=== PATIENT | female | born 2000 | race Caucasian/White ===

== ENCOUNTER 2020-10-21 13:01 | Outpatient (CLI) | payer OTHER, MEDICAID, SELFPAY | END 2020-10-21 13:02 | disposition home or self-care (01) | LOC: ANHCOVIDVC 13:01 | DX: Z23 Encounter for immunization (principal) | CPT/HCPCS: 0001A; 91300 ==

== ENCOUNTER 2020-11-11 13:01 | Outpatient (CLI) | payer OTHER, MEDICAID, SELFPAY | END 2020-11-11 13:02 | disposition home or self-care (01) | LOC: ANHCOVIDVC 13:01 | DX: Z23 Encounter for immunization (principal) | CPT/HCPCS: 0002A; 91300 ==

== ENCOUNTER 2022-02-11 14:47 | Emergency (ER) | payer BC, SELFPAY ==
[2022-02-11 15:03] VITALS: BP 116/67; PULSE 89; RESP 16; TEMP 36.9; O2SAT 99
--- NOTE | 2022-02-11 15:18 | ED.EAR ---
HPI - Ear Problem General Chief complaint: Ear Stated complaint: sore throat Time Seen by Provider: 02/11/22 15:18 Source: patient, RN notes reviewed and old records reviewed Mode of arrival: ambulatory Limitations: no limitations History of Present Illness HPI Narrative: 21-year-old accompanied by grandmother presents to [facility] care with complaints of right ear discomfort with muffled hearing since Wednesday. Patient does state that she did go swimming on Wednesday. Patient has noted bilateral cerumen impactions of ears. Patient denies any dizziness or ringing in her ear or any feelings of vertigo or nausea. Patient is legally blind. MD Complaint: ear pain Location: right ear Duration: intermittent Treatment prior to arrival: none Related Data Home Medications Medication Instructions Recorded Confirmed No Home Medications 02/11/22 02/11/22 Allergies Allergy/AdvReac Type Severity Reaction Status Date / Time No Known Allergies Allergy Verified 02/11/22 15:47 Review of Systems Review of Systems: CONSTITUTIONAL: Denies fever, chills, or sweats. EYES: Denies visual changes, redness, or discharge.Patient is legally blind ENT: Denies rhinorrhea, congestion, sore throat, right ear otalgia. CARDIOVASCULAR: Denies chest pain, palpitations, or edema. RESPIRATORY: Denies cough or dyspnea. GASTROINTESTINAL: Denies abdominal pain, nausea, vomiting, or diarrhea. GENITOURINARY: Denies dysuria or hematuria. SKIN: Denies rash or itching. MUSCULOSKELETAL: Denies back pain, joint pain, or myalgia. NEUROLOGIC: Denies headache, numbness, or weakness. PSYCHIATRIC: Denies anxiety or depression. All systems reviewed & are unremarkable except as noted in HPI and below PMFSH Past Medical History Medical History (Updated 02/14/22 @ 12:47 by Trish Brito NP) Finger fracture Legally blind Social History Social History (Updated 02/14/22 @ 12:46 by Trish Brito NP) Smoking status: Never smoker Alcohol intake: never Substance use: never Living arrangements: with family Occupation/Education: student Gender identity (if verbalized by the patient): Female Comments At time of signature, agree with nursing past medical, surgical, social and family history. There is no relevant family history pertinent to the presenting complaint Exam Narrative: GENERAL: Well-appearing, well-nourished, and in no acute distress. HEAD: Normocephalic, atraumatic. EYES: PERRLA and EOMI. ENT: Nares clear, no rhinorrhea or epistaxis. Mucous membranes moist.TM's unable to view due to cerumen impaction see procedure note, TM normal once cerumen removed with some irritation to right ear canal no drainage, throat pink with no lesions or exudates, no tonsil enlargement NECK: Supple.no lymphadenopathy CHEST: Clear to auscultation. No respiratory distress.SAO2 99% on room air HEART: Regular rate and rhythm. No murmur heard. Normal peripheral pulses. ABDOMEN: Soft, nontender, nondistended, normal active bowel sounds. EXTREMITIES: Normal range of motion. No edema. SKIN: Warm, dry, no rash. NEURO: No focal deficits. Alert and oriented x3. Course Course Level of Care: Express Care Visit Vital Signs Vital signs: Vital Signs Temperature 36.9 C 02/11/22 15:03 Pulse Rate 89 02/11/22 15:03 Respiratory Rate 16 02/11/22 15:03 Blood Pressure 116/67 02/11/22 15:03 Pulse Oximetry 99 02/11/22 15:03 Oxygen Delivery Room Air 02/11/22 15:03 Temperature 36.9 C 02/11/22 15:03 Pulse Rate 89 02/11/22 15:03 Respiratory Rate 16 02/11/22 15:03 Blood Pressure 116/67 02/11/22 15:03 Pulse Oximetry 99 02/11/22 15:03 Oxygen Delivery Room Air 02/11/22 15:03 Procedures Ear Wax Removal Both Ears: Ear Wax Removal Date: 02/11/22 Ear Wax Removal Time: 15:25 Cerumenolytic Used: 5-10% Sodium Bicarb solution Results: Re-examined: cerumen removed completely TM Examination: TM(s) intact, normal
== END 2022-02-11 15:52 | disposition home or self-care (01) ==
PROVIDERS: Emergency Provider Registered Nurse
DX: H61.23 Impacted cerumen, bilateral (principal); H60.91 Unspecified otitis externa, right ear; H54.8 Legal blindness, as defined in USA
CPT/HCPCS: 69209 ×2; 99213; A9270; G0463

== ENCOUNTER 2022-11-09 18:25 | Emergency (ER) | payer BC, SELFPAY ==
--- NOTE | 2022-11-09 18:43 | ED.URI ---
HPI - URI/Sore Throat General Chief Complaint: Upper Respiratory Infection Stated Complaint: Fever/Sore Throat Time Seen by Provider: 11/09/22 19:15 Source: patient and RN notes reviewed Mode of arrival: ambulatory Limitations: no limitations History of Present Illness HPI Narrative: 22-year-old female presents with concern for sore throat. She reports occasional cough. She reports symptoms worsen yesterday. She reports she missed school today because she did feel good. She denies taking any medications for her symptoms MD elicited complaint: sore throat Related Data Home Medications Medication Instructions Recorded Confirmed No Home Medications 02/11/22 11/09/22 Allergies Allergy/AdvReac Type Severity Reaction Status Date / Time No Known Allergies Allergy Verified 11/09/22 19:14 Review of Systems Review of Systems: CONSTITUTIONAL: Reports malaise. Denies chills, sweats, or fever. EYES: Denies visual changes, redness, or discharge. ENT: Denies rhinorrhea, congestion, sinus pain, otalgia. Reports sore throat. CARDIOVASCULAR: Denies chest pain, palpitations, or edema. RESPIRATORY: Reports cough. Denies dyspnea. GASTROINTESTINAL: Denies abdominal pain, nausea, vomiting, diarrhea SKIN: Denies rash or itching. MUSCULOSKELETAL: Denies myalgia. NEUROLOGIC: Denies headache. All systems reviewed & are unremarkable except as noted in HPI and below PMFSH Past Medical History Medical History (Updated 11/09/22 @ 19:21 by Tamera Gibson NP) Finger fracture Legally blind Social History Social History (Updated 02/14/22 @ 12:46 by Trish Brito NP) Smoking status: Never smoker Alcohol intake: never Substance use: never Living arrangements: with family Occupation/Education: student Gender identity (if verbalized by the patient): Female Comments At time of signature, agree with nursing past medical, surgical, social and family history. There is no relevant family history pertinent to the presenting complaint Exam Narrative: GENERAL: Well-appearing, well-nourished, and in no acute distress. HEAD: Normocephalic EYES: PERRLA, conjunctivae clear ENT: Nares clear, turbinates edematous and erythematous, clear discharge. Mucous membranes moist. TM pearly villalba with dull light reflex bilaterally; no tragal tenderness. Oropharynx not erythematous without lesions. Tonsils not enlarged and without exudate, no drooling, no hoarseness, no trismus, uvula midline. NECK: Supple. No lymphadenopathy CHEST: Clear to auscultation, breath sounds equal. No wheezing, rhonchi, rales, or stridor. No respiratory distress, speaks in full sentences. HEART: Regular rate and rhythm. No murmur heard. SKIN: Warm, dry, no rash. NEURO: Alert and oriented x3. PSYCH: Normal mood and affect Course Course Emergency Course: Patient is aware of diagnosis, understands and agrees to treatment plan. Anticipatory guidance given. Patient agrees to follow-up as directed and is aware of reasons to seek care at the emergency department. Portions of this record may have been created with voice recognition software Level of Care: Express Care Visit Vital Signs Vital signs: Vital Signs Temperature 98.8 F 11/09/22 18:44 Pulse Rate 116 H 11/09/22 18:44 Respiratory Rate 14 11/09/22 18:44 Blood Pressure 127/87 11/09/22 18:44 Pulse Oximetry 100 11/09/22 18:44 Oxygen Delivery Room Air 11/09/22 18:44 Temperature 98.8 F 11/09/22 18:44 Pulse Rate 116 H 11/09/22 18:44 Respiratory Rate 14 11/09/22 18:44 Blood Pressure 127/87 11/09/22 18:44 Pulse Oximetry 100 11/09/22 18:44 Oxygen Delivery Room Air 11/09/22 18:44 Reviewed. MDM - URI/Sore Throat MDM Narrative Medical decision making narrative: Differential diagnosis considered: Llan[place] virus, strep pharyngitis, allergic rhinitis, upper respiratory tract infection, sinusitis, rhinosinusitis, nasopharyngitis. viral pharyngitis, otitis media, otitis exte
[2022-11-09 18:44] VITALS: BP 127/87; PULSE 116; RESP 14; TEMP 37.1; O2SAT 100
== END 2022-11-09 19:27 | disposition home or self-care (01) ==
PROVIDERS: Emergency Provider Nurse Practitioner; PCP Family Medicine Adolescent Medicine
DX: J06.9 Acute upper respiratory infection, unspecified (principal); H54.8 Legal blindness, as defined in USA
CPT/HCPCS: 87081; 87804; 87880; 99213; G0463

== ENCOUNTER 2024-06-26 14:59 | Emergency (ER) | payer BC, SELFPAY ==
--- NOTE | ~2024-06-26 | XR_ITS ---
XR knee RT min 4V Ordering provider: Tamera Quevedo APRN History: . FALL 4 DAYS AGO SKINNED KNEE PAIN WITH AMBULATION . Comparison: None. FINDINGS: BONES: No acute fracture or dislocation. JOINT SPACES: Normal. SOFT TISSUES: Normal. IMPRESSION: No acute osseous abnormality right knee. Reviewed, dictated and finalized at location A. BAKER
[2024-06-26 15:17] VITALS: BP 119/73; PULSE 79; RESP 16; TEMP 36.7; O2SAT 100
--- NOTE | 2024-06-26 16:01 | ED_ITS ---
HPI - General Adult General Chief complaint: Extremity Injury, Lower Stated complaint: FALL Time Seen by Provider: 06/26/24 16:02 Source: patient, RN notes reviewed and old records reviewed Mode of arrival: ambulatory Limitations: no limitations History of Present Illness HPI narrative: 24-year-old female presents to the [facility] with complaints of a fall. Patient with an abrasion to the right knee. Reports feeling hot. Pain to the anterior portion, states that she tripped and landed on her knee. Related Data Home Medications Medication Instructions Recorded Confirmed No Home Medications 02/11/22 11/09/22 Allergies Allergy/AdvReac Type Severity Reaction Status Date / Time No Known Allergies Allergy Verified 11/09/22 19:14 Review of Systems Review of Systems: All systems reviewed & are unremarkable except as noted in HPI and below Constitutional: Constitutional: Reports no additional constitutional complaints ENT: Reports system reviewed and no additional complaints, except as documented Cardiovascular: Cardiovascular: Reports no additional cardiovascular complaints, Denies chest pain and Denies dyspnea Respiratory: Respiratory: Reports no additional respiratory complaints, Denies chest congestion, Denies cough and Denies dyspnea Gastrointestinal: Gastrointestinal: Reports no additional gastrointestinal complaints, Denies abdominal pain, Denies nausea and Denies vomiting Musculoskeletal: Musculoskeletal: Reports no additional musculoskeletal complaints Integumentary/Breasts: Skin/Breast: Reports system reviewed and no additional complaints, except as docu PMFSH Past Medical History Medical History (Updated 06/26/24 @ 16:29 by Tamera Quevedo APRN) Finger fracture Legally blind Social History Social History (Updated 02/14/22 @ 12:46 by Trish Brito NP) Smoking status: Never smoker Alcohol intake: never Substance use: never Living arrangements: with family Occupation/Education: student Gender identity (if verbalized by the patient): Female Comments At the time of my signature, I reviewed and agree with the nursing past medical, surgical, social, and family history. There is no relevant family history pertinent to the patient complaint. Exam Const: General: cooperative, healthy appearing, comfortable, no acute distress, well developed, alert and well nourished Nutritional Appearance: well nourished Orientation/consciousness: patient oriented x3 Limitations: no limitations HENMT: Head: normal to inspection Ears: hearing grossly normal bilaterally and external ears normal Face/Nose/Sinus: Normal external nose present, normal facial exam and face symmetric Face and sinus: normal facial exam and face symmetric Eyes: General: appearance normal, both eyes and all related structures Alignment and Position: alignment normal Periorbital: periorbital findings normal Neck: Neck: normal visual inspection, full ROM, no lymphadenopathy and no meningeal signs Chest: Chest palpation & inspection: normal inspection of the chest Resp: Effort & Inspection: normal respiratory effort and able to speak in complete sentences Auscultation: clear to auscultation bilaterally, no crackles, no rales, no rhonchi and no wheezes Cardio: Rate: regular rate Skin: General skin exam: normal color and no rashes or lesions noted Lesions: no lesions Rashes: no rashes Wounds: no wounds Neuro: General: patient oriented x3, gait normal, tone normal, moves all extremities and no meningeal signs Cognition (Neuro): normal cognition Speech: normal speech Gait exam (Neuro): Normal gait present Extrem: General: normal to inspection, full ROM, capillary refill normal and normal gait Psych: Appearance: grossly normal and well kempt Mental Status: mental status grossly normal Speech and movement: Normal speech and movement present and Clear speech present Affect: normal affect Attitude: cooperative Course Course Level of Care: Express Care Visit Vital Signs Vital signs: Vital Signs Temperature 98.0 F 06/26/24 15:17 Pulse Rate 79 06/26/24 15:17 Respiratory Rate 16 06/26/24 15:17 Blood Pressure 119/73 06/26/24 15:17 Pulse Oximetry 100 06/26/24 15:17 Oxygen Delivery Room Air 06/26/24 15:17 Temperature 98.0 F 06/26/24 15:17 Pulse Rate 79 06/26/24 15:17 Respiratory Rate 16 06/26/24 15:17 Blood Pressure 119/73 06/26/24 15:17 Pulse Oximetry 100 06/26/24 15:17 Oxygen Delivery Room Air 06/26/24 15:17 Reviewed Medical Decision Making MDM Narrative Medical decision making narrative: Patient sitting comfortably in exam room. Nontoxic, vitals stable. Patient in no acute distress Patient presents for Discharge instructions reviewed with patient, as well as provided in writing per nursing staff. The instructions also include specific and strict return/GO TO THE ER as well as f/u information. All questions have been answered, and the patient deny any further questions with discharge and discharge plan. Some parts of this dictation were generated by voice recognition software and may contain typographical and/or grammatical inaccuracies. Medical Records Medical records reviewed: Yes I reviewed the external patient's medical records. Vital Signs Vital Signs: Vital Signs Temperature 98.0 F 06/26/24 15:17 Pulse Rate 79 06/26/24 15:17 Respiratory Rate 16 06/26/24 15:17 Blood Pressure 119/73 06/26/24 15:17 Pulse Oximetry 100 06/26/24 15:17 Oxygen Delivery Room Air 06/26/24 15:17 Temperature 98.0 F 06/26/24 15:17 Pulse Rate 79 06/26/24 15:17 Respiratory Rate 16 06/26/24 15:17 Blood Pressure 119/73 06/26/24 15:17 Pulse Oximetry 100 06/26/24 15:17 Oxygen Delivery Room Air 06/26/24 15:17 Reviewed Lab Data Lab results reviewed: Yes I reviewed the patient's lab results. Labs: Reviewed Imaging Data Radiologist's impression: XR knee RT min 4V Ordering provider: Tamera Quevedo APRN History: . FALL 4 DAYS AGO SKINNED KNEE PAIN WITH AMBULATION . Comparison: None. FINDINGS: BONES: No acute fracture or dislocation. JOINT SPACES: Normal. SOFT TISSUES: Normal. IMPRESSION: No acute osseous abnormality right knee. Critical Care Time Critical Care Time Critical Care Time: No Discharge Plan Discharge Clinical Impression: Contusion of knee, right, Abrasion of knee, right Patient Disposition: Home, Self-Care Condition: Stable Instructions: Antibiotic Form, Contusion in Adults (ED), Abrasion (ED) Prescriptions: No Action No Home Medications Follow-up/Referrals: Baldo Guzman MD [Primary Care Provider] -
== END 2024-06-26 16:35 | disposition home or self-care (01) ==
PROVIDERS: Emergency Provider Nurse Practitioner; PCP Family Medicine Adolescent Medicine
DX: S80.01XA Contusion of right knee, initial encounter (principal); W01.0XXA Fall on same level from slipping, tripping and stumbling without subsequent striking against object, initial encounter; S80.211A Abrasion, right knee, initial encounter; H54.8 Legal blindness, as defined in USA
CPT/HCPCS: 73564; 99213; G0463

== ENCOUNTER 2025-01-28 16:54 | Emergency (ER) | payer BC, SELFPAY ==
--- NOTE | ~2025-01-28 | XR_ITS ---
XR knee LT min 4V Ordering provider: Ryan Gore APRN History: . anterior knee pain-felt like patella dislocated . Comparison: None. FINDINGS: BONES: No acute fracture or dislocation. JOINT SPACES: Normal. SOFT TISSUES: Normal. IMPRESSION: No acute osseous abnormality left knee. Reviewed, dictated and finalized at location A.
--- NOTE | 2025-01-28 16:56 | ED_ITS ---
HPI - Extremity Injury (Lower) General Chief Complaint: Extremity Injury, Lower Stated Complaint: Left Knee Injury Time Seen by Provider: 01/28/25 16:55 Source: patient Mode of arrival: ambulatory Limitations: no limitations History of Present Illness HPI Narrative: Diana is a 24-year-old female patient presenting to the clinic today with complaints of left anterior knee pain. She reports she twisted her knee when she was getting onto her bed around 4:00 today. [place] as though her knee cap dislocated. States that has gone back into place now the pain has improved but she is concerned that she damaged her knee. Related Data Home Medications ?Medication ?Instructions ?Recorded ?Confirmed ?Last Taken ?Type No Home Medications 02/11/22 01/28/25 Unknown History Allergies Allergy/AdvReac Type Severity Reaction Status Date / Time No Known Allergies Allergy Verified 01/28/25 16:57 Review of Systems Review of Systems: Pertinent positives per HPI. Patient denies any fever, chills, rash, headache, visual changes, dizziness, cough, runny nose, sore throat, shortness of breath, chest pain, palpitations, nausea, vomiting, diarrhea, constipation, abdominal pain, or any urinary issues. [facility] Past Medical History Medical History Finger fracture Legally blind Social History Social History Smoking status: Never smoker Alcohol intake: never Substance use: never Living arrangements: with family Occupation/Education: student Gender identity (if verbalized by the patient): Female Comments At the time of my signature, I reviewed and agree with the nursing past medical, surgical, social, and family history. There is no relevant family history pertinent to the patient complaint. Exam Narrative: General: Well-developed, well nourished, in no apparent distress Head: Normocephalic, atraumatic. Cardio: Regular rate and rhythm, s1 and s2 normal, no murmur appreciated. Resp: Clear to auscultation bilaterally, no rhonchi, rales, wheezing or rubs. Musculoskeletal: No deformity, anterior knee tender to palpation, no obvious swelling, no obvious dislocation, grossly normal range of motion, muscle strength strong and equal, peripheral pulse strong, no edema, no cyanosis, normal gait and station Course Course Emergency Course: Portions of this record may have been created with voice recognition software. Level of Care: Express Care Visit Vital Signs Vital signs: Vital Signs Temperature 37.3 C 01/28/25 17:01 Pulse Rate 101 H 01/28/25 17:01 Respiratory Rate 20 01/28/25 17:01 Blood Pressure 127/78 01/28/25 17:01 Pulse Oximetry 100 01/28/25 17:01 Oxygen Delivery Room Air 01/28/25 17:01 Temperature 37.3 C 01/28/25 17:01 Pulse Rate 101 H 01/28/25 17:01 Respiratory Rate 20 01/28/25 17:01 Blood Pressure 127/78 01/28/25 17:01 Pulse Oximetry 100 01/28/25 17:01 Oxygen Delivery Room Air 01/28/25 17:01 Vital signs reviewed MDM - Extremity Injury (Lower) MDM Narrative Medical decision making narrative: At the time of visit patient is resting comfortably on the exam table. Patient appears to be nontoxic. Diagnostics: X-ray of the left knee was performed and is negative for any sign of fracture or malalignment. Plan: I suspect patient has left knee sprain, Supportive measures were discussed with the patient and they voiced understanding discharge instructions and agrees to treatment plan. Return precautions reviewed Differential Diagnosis Differential diagnosis: Likely acute internal derangement of knee and other (Knee sprain, tibia fracture, femur fracture) Imaging Data Radiologist's impression: ITS Impressions Knee X-Ray 01/28/25 17:19 IMPRESSION: No acute osseous abnormality left knee. Discharge Plan Discharge Clinical Impression: Left knee sprain Qualifiers: Encounter type: initial encounter Involved ligament of knee: unspecified ligament Qualified Code(s): S83.92XA - Sprain of unspecified site of left knee, initial encounter Patient Disposition: Home Condition: Stable Instructions: Antibiotic Form, Knee Sprain (ED) Additional Instructions: X-rays negative for any sign of fracture or malalignment. Rest, ice, elevate, and wear kirk wrap as directed Tylenol/motrin for pain as discussed. Gradually bear weight Follow up with your PCP if symptoms persist more than 1 week. Patient Language: [place] Prescriptions: No Action No Home Medications Follow-up/Referrals: UNKNOWN,DOCTOR [Primary Care Provider] - Time of Disposition: 17:23 Quality NIHSS Nursing Documentation ED NIHSS nursing documentation: reviewed/agree
[2025-01-28 17:01] VITALS: BP 127/78; PULSE 101; RESP 20; TEMP 37.3; O2SAT 100
== END 2025-01-28 17:40 | disposition home or self-care (01) ==
PROVIDERS: Emergency Provider Nurse Practitioner Family
DX: S83.92XA Sprain of unspecified site of left knee, initial encounter (principal); X50.1XXA Overexertion from prolonged static or awkward postures, initial encounter; H54.8 Legal blindness, as defined in USA
CPT/HCPCS: 73564; 99213; G0463

== ENCOUNTER 2025-07-24 16:54 | Emergency (ER) | payer BC, SELFPAY ==
[2025-07-24 17:07] VITALS: BP 114/84; PULSE 84; RESP 16; TEMP 36.4; O2SAT 100
--- NOTE | 2025-07-24 17:47 | ED_ITS ---
HPI - URI/Sore Throat General Chief Complaint: Upper Respiratory Infection Stated Complaint: Sore Throat Time Seen by Provider: 07/24/25 17:25 Source: patient, RN notes reviewed and other (Friend) Mode of arrival: ambulatory Limitations: physical limitation (Patient is legally blind, patient's friend is also legally blind) History of Present Illness HPI Narrative: 25-year-old female presents Express Care with friend complaining of upper respiratory symptoms for little over a week. Patient reports cough, congestion, sore throat, mucopurulent nasal drainage, sinus pressure. Patient says symptoms are worsening and not improving. Patient denies any other upper respiratory symptoms, fevers, body aches chills, nausea vomiting, diarrhea, chest pain, breathing problems, any other symptoms. Patient is taking Motrin to help with the symptoms. Patient is legally blind, otherwise denies any other significant past medical problems. Related Data Allergies Allergy/AdvReac Type Severity Reaction Status Date / Time No Known Allergies Allergy Verified 07/24/25 17:07 Review of Systems Review of Systems: CONSTITUTIONAL: Denies fever, chills, or sweats. EYES: Denies visual changes, redness, or discharge. ENT: Denies rhinorrhea, or otalgia. Positive for congestion, sinus pressure, sore throat. CARDIOVASCULAR: Denies chest pain, palpitations, or edema. RESPIRATORY: Positive for cough. Negative for wheezing or dyspnea. GASTROINTESTINAL: Denies abdominal pain, nausea, vomiting, or diarrhea. GENITOURINARY: Denies dysuria or hematuria. SKIN: Denies rash or itching. MUSCULOSKELETAL: Denies back pain, joint pain, or myalgia. NEUROLOGIC: Denies headache, numbness, or weakness. PSYCHIATRIC: Denies anxiety or depression. All other systems reviewed are negative, except as documented in HPI. [facility] Past Medical History Medical History Finger fracture Legally blind Social History Social History Smoking status: Never smoker Alcohol intake: never Substance use: never Living arrangements: with family Occupation/Education: student Gender identity (if verbalized by the patient): Female Comments At the time of my signature, I reviewed and agree with the nursing past medical, surgical, social, and family history. There is no relevant family history pertinent to the patient complaint. Exam Narrative: GENERAL: This is a well-nourished, well-developed adult, in no apparent distress. They are non ill-appearing, nontoxic appearing. HEAD: normocephalic, atraumatic. EYES: Sclera clear/white. Conjunctiva normal. Vision impaired, patient legally blind. Nystagmus present. EARS: External ears normal, auditory canals clear and without drainage, TMs normal without perforation. Hearing grossly intact. NOSE: External nose normal with no obvious nasal discharge, nasal turbinates erythematous with exudate, no rhinorrhea. Maxillary and frontal sinus tenderness to palpation. THROAT: Mucous membranes moist, posterior pharynx erythematous with PND present. Uvula midline. NECK: Neck supple, non-tender without lymphadenopathy, masses or thyromegaly. CARDIOVASCULAR: Regular rate and rhythm without murmurs, gallops, or rubs. RESPIRATORY: Clear to auscultation. Breath sounds equal bilaterally. No wheezes, rales, or rhonchi. SKIN: warm, Dry, intact with no suspicious lesions or rash, good texture and turgor. NEURO: awake, alert, and oriented to person, place and time. There were no obvious focal neurologic abnormalities. EXTREMITIES: No joint tenderness, effusion, or edema noted. BACK: Nontender without deformity. Course Course Level of Care: Express Care Visit Vital Signs Vital signs: Vital Signs Temperature 97.5 F L 07/24/25 17:07 Pulse Rate 84 07/24/25 17:07 Respiratory Rate 16 07/24/25 17:07 Blood Pressure 114/84 07/24/25 17:07 Pulse Oximetry 100 07/24/25 17:07 Temperature 97.5 F L 07/24/25 17:07 Pulse Rate 84 07/24/25 17:07 Respiratory Rate 16 07/24/25 17:07 Blood Pressure 114/84 07/24/25 17:07 Pulse Oximetry 100 07/24/25 17:07 [employer] Narrative Medical decision making narrative: Rapid strep negative. A throat culture is pending. Given patient's length of symptoms worsen symptoms likely she has a bacterial sinusitis. Will treat with Augmentin. Discussed supportive care, patient says that she has resources and help available treat her discharge instructions and get her scheduled for appropriate follow-ups. Patient says she is a [place] and ask if she can have referral to ENT in the event that her symptoms do not improve for her vocal cords. Patient was given information to a an ENT however she informed her she may need a referral from her PCP, patient given a new PCP referral because she says her is as retired. Discussed physical exam findings. Advised supportive measures and signs/symptoms to go to the ER. Pt is appropriate for outpt treatment and f/u. Differential Diagnosis Differential Diagnosis: Differential diagnostic considerations for upper respiratory infection include upper respiratory infection, croup, otitis media, sinusitis, viral infection, b ronchitis, influenza, pharyngitis, strep, uvulitis. Critical Care Time Critical Care Time Critical Care Time: No Discharge Plan Discharge Clinical Impression: Sinusitis Qualifiers: Sinusitis location: unspecified location Chronicity: acute Recurrence: non- recurrent Qualified Code(s): J01.90 - Acute sinusitis, unspecified Patient Disposition: Home Condition: Stable Instructions: Antibiotic Form, Sinusitis (ED) Additional Instructions: Your rapid strep is negative. A throat culture will be sent off and if it is positive for strep you will be contacted. Take the antibiotics as directed and complete the course even if you start to feel better. You may use a Neti pot saline rinse 3 times a day with lukewarm distilled water Continue to take Tylenol or Motrin as needed for pain or fevers. Use a humidifier or vaporizer at night. Drink plenty of water. 8-10 glasses per day. Use flonase 2 times per day for 5 days then as needed Take mucinex 2 times per day and be sure to take with 8oz of water. Follow up with Primary provider in 3-5 days Please go to the ER if he develops any difficulty breathing, chest pain, vomiting worsening symptoms, or any other concerns Patient Language: Syriac Prescriptions: New amoxicillin-pot clavulanate 875-125 mg tablet 1 tablet PO Q12H 7 Days Qty: 14 0RF Follow-up/Referrals: Grayson Snowden MD [Physician, Ear, Nose, Throat] Referral Note: F/u for any vocal chord concerns PHYSICIAN,[employer] [Primary Care Provider, Internal Medicine] Freedom Chaney MD [Physician, Family Practice] - 3 Days Referral Note: To get established with a PCP Time of Disposition: 17:36
[2025-07-24 18:01] LABS: EDSTREPNEGPOS1 Negative (Negative)
== END 2025-07-24 17:50 | disposition home or self-care (01) ==
DX: J01.90 Acute sinusitis, unspecified (principal); H54.8 Legal blindness, as defined in USA
CPT/HCPCS: 87081; 87880; 99213; G0463